=== PATIENT | male | born 1960 | race Caucasian/White ===

== ENCOUNTER 2021-01-15 14:00 | Outpatient (CLI) | payer BC, SELFPAY | END 2021-01-15 14:01 | disposition home or self-care (01) | LOC: ANHCOVIDVC 14:00 | PROVIDERS: PCP Family Medicine | DX: Z23 Encounter for immunization (principal) | CPT/HCPCS: 0001A; 91300 ==

== ENCOUNTER 2021-02-05 13:47 | Outpatient (CLI) | payer BC, SELFPAY | END 2021-02-05 13:48 | disposition home or self-care (01) | LOC: ANHCOVIDVC 13:48 | PROVIDERS: PCP Family Medicine | DX: Z23 Encounter for immunization (principal) | CPT/HCPCS: 0002A; 91300 ==

== ENCOUNTER → 2021-03-08 02:26 | Outpatient (CLI) | payer BC, SELFPAY ==
[2021-03-08 18:15] LABS: SARS-CoV-2 RNA PCR Negative
== END ==
PROVIDERS: PCP Family Medicine; Visit Provider Internal Medicine Gastroenterology
DX: Z01.812 Encounter for preprocedural laboratory examination (principal); Z20.822 Contact with and (suspected) exposure to COVID-19
CPT/HCPCS: C9803; U0003; U0005

== ENCOUNTER 2021-03-11 01:24 | Day surgery (SDC) | payer BC, SELFPAY ==
[2021-02-26 13:17] VITALS: BMI 31.6
[2021-03-11 07:37] VITALS: BP 147/80; PULSE 71; RESP 20; TEMP 36.1; O2SAT 99
[2021-03-11] MEDS: LACTATED RINGERS 1,000 ML 150 ML IV CONT (07:43)
--- NOTE | 2021-03-11 08:03 | WPDANESEPPF ---
Anes - Initial Pre Proc Eval Procedure: Operation Date: 03/11/21 08:30 Proposed Procedures p Screening Colonoscopy - Leon Reardon MD Date/Time: 03/11/21 08:03 Surgeon: Leon Reardon MD Pre Op Diagnosis: neoplasm screening, hx of colon polyps Patient Data Age: 60 Gender: M Height: 1.78 m Weight: 130.1 kg Last Vital Signs Temp 36.1 C L 03/11/21 07:37 Pulse 71 03/11/21 07:37 Resp 20 03/11/21 07:37 BP 147/80 H 03/11/21 07:37 Pulse Ox 99 03/11/21 07:37 Allergies Allergy/AdvReac Type Severity Reaction Status Date / Time No Known Allergies Allergy Verified 03/11/21 07:36 Home Medications Medication Instructions Recorded Confirmed Type sildenafil 100 mg tablet 100 mg PO DAILY PRN 11/15/19 02/26/21 History lisinopril 10 mg tablet 10 mg PO DAILY #90 tablet 04/02/20 02/26/21 Rx levothyroxine 200 mcg tablet 200 mcg PO DAILY #90 tablet 04/26/20 02/26/21 Rx pravastatin 20 mg tablet 20 mg PO DAILY #90 tablet 11/19/20 02/26/21 Rx metformin 500 mg tablet,extended See Rx Instructions .ROUTE 12/24/20 02/26/21 Rx release 24 hr .COMPLEX #90 tablet Patient hx anesthesia problems: none Family hx anesthesia problems: none PMFSH Surgical History Surgical History History of mandibular surgery Family History Family History Sibling Diabetes mellitus Social History Social History Smoking packs per day: 0.5 Smoking cigarettes per day: 10.0 Years smoked: 25 Smoking pack-years: 12.50 Smoking status: Former smoker Tobacco type: cigarettes Second hand tobacco smoke exposure: No Smoking end date: 10/05/03 Alcohol intake: never Substance use: never Substance use type: does not use Living arrangements: with family Gender identity (if verbalized by the patient): Male Spiritual care concerns: No Anes - Eval Final PreProcedure Day of Procedure 03/11/21 08:03 Patient weight: obese Heart: regular rate and rhythm Lungs: clear to auscultation and normal air movement Airway: Mallampati scale class II Neurological: alert and oriented Last oral intake: >/= 8 hours ASA classification: III Emergent: no Anesthetic plan: proceed Anesthesia type and monitoring: general GIVS Informed Consent: The patient's anesthetic plan and its attendant risks and benefits were discussed with the patient/family/POA. Questions were solicited and answers provided to the satisfaction of the patient/family/POA.
--- NOTE | 2021-03-11 08:16 | PM.HPGS ---
History of Present Illness History of Present Illness Consent: Risks, benefits, and alternatives have been discussed and questions answered. Patient agrees to proceed with procedure. Chief complaint: neoplasm screening, hx of colon polyps Narrative: Odin Foy is a 60 year old male with colon polyp in 2016 Review of Systems Constitutional: Constitutional: Denies headache(s) and Denies weakness Eyes: Eyes: Denies blurry vision ENT: Reports Normal hearing present, Denies headache(s) and Denies neck pain Cardiovascular: Cardiovascular: Denies chest pain and Denies dyspnea Respiratory: Respiratory: Denies dyspnea Gastrointestinal: Gastrointestinal: Reports no additional gastrointestinal complaints Genitourinary: Genitourinary: Denies dysuria Musculoskeletal: Musculoskeletal: Denies neck pain Integumentary/Breasts: Skin/Breast: Denies dry skin Neurologic: Reports Normal hearing present, Denies headache(s) and Denies weakness Psychiatric: Psychiatric: Denies anxiety Endocrine: Endocrine: Denies change in body appearance Hematologic/Lymphatic: Hematologic/Lymphatic: Denies easy bleeding Allergic/Immunologic: Allergic/Immunologic: Denies urticaria PMFSH Past Medical History Medical History (Updated 03/11/21 @ 08:17 by Leon Reardon MD) Colon polyp Surgical History Surgical History History of mandibular surgery Family History Family History Sibling Diabetes mellitus Social History Social History Smoking packs per day: 0.5 Smoking cigarettes per day: 10.0 Years smoked: 25 Smoking pack-years: 12.50 Smoking status: Former smoker Tobacco type: cigarettes Second hand tobacco smoke exposure: No Smoking end date: 10/05/03 Alcohol intake: never Substance use: never Substance use type: does not use Living arrangements: with family Gender identity (if verbalized by the patient): Male Spiritual care concerns: No Meds Home Medications and Allergies Home Medications Medication Instructions Recorded Confirmed Type sildenafil 100 mg tablet 100 mg PO DAILY PRN 11/15/19 02/26/21 History lisinopril 10 mg tablet 10 mg PO DAILY #90 tablet 04/02/20 02/26/21 Rx levothyroxine 200 mcg tablet 200 mcg PO DAILY #90 tablet 04/26/20 02/26/21 Rx pravastatin 20 mg tablet 20 mg PO DAILY #90 tablet 11/19/20 02/26/21 Rx metformin 500 mg tablet,extended See Rx Instructions .ROUTE 12/24/20 02/26/21 Rx release 24 hr .COMPLEX #90 tablet Allergies Allergy/AdvReac Type Severity Reaction Status Date / Time No Known Allergies Allergy Verified 03/11/21 07:36 Vital Signs Vital Signs - 24 hr 03/11/21 07:37 Temperature 97 F L Pulse Rate 71 Respiratory Rate 20 Blood Pressure 147/80 H Pulse Oximetry 99 Exam Const: General: comfortable and no acute distress HENMT: General nose exam: Normal nares present Eyes: General: appearance normal, both eyes and all related structures Neck: Neck: no JVD Resp: Auscultation: clear to auscultation bilaterally Cardio: Rate: regular rate Rhythm: regular rhythm GI: Inspection: non-distended GI Palp: Yes Soft to palpation Skin: General skin exam: normal color Neuro: General: gait normal Speech: normal speech Extrem: General: normal to inspection Psych: Mental Status: mental status grossly normal Assessment and Plan Assessment and plan (1) Colon polyp: Code(s): K63.5 - Polyp of colon Status: Acute Assessment and Plan: colonoscopy
[2021-03-11 08:42] VITALS: BP 101/66; PULSE 77; RESP 17; O2SAT 98
[2021-03-11 08:52] VITALS: BP 107/64; PULSE 71; RESP 17; O2SAT 98
[2021-03-11 09:01] LABS: Glucose Point of Care 138 mg/dl (65-105)
[2021-03-11 09:02] VITALS: BP 124/84; PULSE 62; RESP 17; O2SAT 98
== END 2021-03-11 09:13 | disposition home or self-care (01) ==
PROVIDERS: PCP Family Medicine; Visit Provider Internal Medicine Gastroenterology
PROC: 0DJD8ZZ Inspection of Lower Intestinal Tract, Via Natural or Artificial Opening Endoscopic (ICD-10-PCS; CPT 45378; principal; 2021-03-11 08:30)
DX: Z12.11 Encounter for screening for malignant neoplasm of colon (principal); D12.4 Benign neoplasm of descending colon; K64.8 Other hemorrhoids; Z87.891 Personal history of nicotine dependence; Z79.84 Long term (current) use of oral hypoglycemic drugs; E66.9 Obesity, unspecified; Z68.32 Body mass index [BMI] 32.0-32.9, adult
CPT/HCPCS: 45385; 82948; 88305; J7120

== ENCOUNTER 2021-10-01 08:40 | Outpatient (CLI) | payer BC, SELFPAY ==
--- NOTE | 2021-10-01 11:00 | NEURO_ITS ---
Impression: # Complains of numbness of hands. # Carpal Tunnel Syndrome, left more than right, of mild degree. # No ulnar neuropathy. # Normal needle/EMG exam. Nerve Conduction Studies Anti Sensory Summary Table Stim Site NR Peak (ms) P-T Amp (?V) Site1 Site2 Delta-P (ms) Dist (cm) Tom (m/s) Left Median Anti Sensory (2-3nd Digit) Wrist 3.4 50.2 Wrist 2-3nd Digit 3.4 14.0 41 Wrist 3.9 23.8 Wrist 2-3nd Digit 3.4 14.0 41 Right Median Anti Sensory (2-3nd Digit) Wrist 4.8 25.7 Wrist 2-3nd Digit 4.8 14.0 29 Wrist 3.8 27.1 Wrist 2-3nd Digit 4.8 14.0 29 Left Radial Anti Sensory (Base 1st Digit) Wrist 2.0 27.1 Wrist Base 1st Digit 2.0 0.0 Right Radial Anti Sensory (Base 1st Digit) Wrist 2.1 8.0 Wrist Base 1st Digit 2.1 0.0 Left Ulnar Anti Sensory (5th Digit) Wrist 2.5 51.6 Wrist 5th Digit 2.5 14.0 56 Right Ulnar Anti Sensory (5th Digit) Wrist 2.7 7.8 Wrist 5th Digit 2.7 14.0 52 Motor Summary Table Stim Site NR Onset (ms) O-P Amp (mV) Site1 Site2 Delta-0 (ms) Dist (cm) Tom (m/s) Left Median Motor (Abd Poll Brev) Wrist 4.8 2.2 Elbow Wrist 6.1 31.0 51 Elbow 10.9 3.5 Right Median Motor (Abd Poll Brev) Wrist 4.3 4.1 Elbow Wrist 5.8 30.0 52 Elbow 10.1 3.7 Left Ulnar Motor (Abd Dig Minimi) Wrist 3.0 5.2 A Elbow Wrist 5.8 32.0 55 A Elbow 8.8 4.2 Right Ulnar Motor (Abd Dig Minimi) Wrist 3.0 5.7 A Elbow Wrist 5.5 30.0 55 A Elbow 8.5 4.2 F Wave Studies NR F-Lat (ms) L-R F-Lat (ms) Left Median (Mrkrs) (Abd Poll Brev) 30.82 0.42 Right Median (Mrkrs) (Abd Poll Brev) 31.24 0.42 Left Ulnar (Mrkrs) (Abd Dig Min) 29.79 1.14 Right Ulnar (Mrkrs) (Abd Dig Min) 30.93 1.14 EMG Side Muscle Nerve Root Ins Act Fibs Amp Dur Recrt Comment Right 1stDorInt Ulnar C8-T1 Nml Nml Nml Nml Nml Right Ext Indicis Radial (Post Int) C7-8 Nml Nml Nml Nml Nml Right Ext Digitorum Radial (Post Int) C7-8 Nml Nml Nml Nml Nml Right BrachioRad Radial C5-6 Nml Nml Nml Nml Nml Right PronatorTeres Median C6-7 Nml Nml Nml Nml Nml Right Abd Poll Brev Median C8-T1 Nml Nml Nml Nml Nml Left 1stDorInt Ulnar C8-T1 Nml Nml Nml Nml Nml Left Ext Indicis Radial (Post Int) C7-8 Nml Nml Nml Nml Nml Left Ext Digitorum Radial (Post Int) C7-8 Nml Nml Nml Nml Nml Left BrachioRad Radial C5-6 Nml Nml Nml Nml Nml Left PronatorTeres Median C6-7 Nml Nml Nml Nml Nml Left Abd Poll Brev Median C8-T1 Nml Nml Nml Nml Nml Right ABD Dig Min Ulnar C8-T1 Nml Nml Nml Nml Nml Left ABD Dig Min Ulnar C8-T1 Nml Nml Nml Nml Nml MTDD
== END 2021-10-01 08:41 | disposition home or self-care (01) ==
PROVIDERS: PCP Family Medicine; Visit Provider Physician Assistant
DX: R20.2 Paresthesia of skin (principal); G56.03 Carpal tunnel syndrome, bilateral upper limbs
CPT/HCPCS: 95886; 95911

== ENCOUNTER 2024-09-20 11:53 | Outpatient (CLI) | payer MEDICARE, SELFPAY ==
--- NOTE | ~2024-09-20 | XR_ITS ---
Right Shoulder Technique: AP and scapular Y views were obtained. Clinical History: Pain Findings: No fracture or dislocation is seen. Osseous alignment is anatomic. The glenohumeral joint i s intact. There is mild AC joint degenerative change. Soft tissues are unremarkable. Impression: Mild AC joint degenerative change. Reviewed, dictated and finalized at [facility]. AR HAND Impression: Mild AC joint degenerative change.
== END 2024-09-20 11:54 | disposition home or self-care (01) ==
PROVIDERS: PCP Family Medicine; Visit Provider Family Medicine
DX: M19.011 Primary osteoarthritis, right shoulder (principal)
CPT/HCPCS: 73030